=== PATIENT | male | born 1975 | race Caucasian/White ===

== ENCOUNTER 2024-10-20 19:21 | Emergency (ER) | payer OTHER, SELFPAY ==
[2024-10-20 19:23] VITALS: BP 114/73
[2024-10-20 20:49] VITALS: BP 121/79
[2024-10-20] MEDS: NSS 1000 IV ×2 (20:57→22:10)
[2024-10-20] MEDS: TYLENOL 1000 MG PO (20:57)
[2024-10-20 21:00] VITALS: BP 129/78; BMI 24.2
[2024-10-20 21:20] LABS: Hematocrit 41.5 % (39.0-52.0); Hemoglobin 15.1 g/dL (13.0-18.0); Mean Corp Hgb Conc. 36.4 g/dL (33.0-37.0); Mean Corpuscular Volume 84.9 fL (80.0-94.0); Nucleated Red Blood Cells % 0 % (-); Platelet Count 110 10^3/uL (130-400); Red Cell Dist. Width 12.6 % (11.5-14.5)
[2024-10-20 21:36] LABS: ALT (SGPT) 82 U/L (0-50); AST (SGOT) 62 U/L (17-59); Albumin 4.2 g/dl (3.5-5.0); Alkaline Phosphatase 99 U/L (38-126); Blood Urea Nitrogen 12 mg/dl (9-20); Calcium 8.7 mg/dl (8.4-10.2); Carbon Dioxide 24 mmol/L (22-30); Chloride 100 mmol/L (98-107); Estimated Creatinine Clearance 108 ml/min; Glucose 137 mg/dl (70-99); Potassium 4.2 mmol/L (3.5-5.1); Sodium 131 mmol/L (135-145); Total Protein 7.4 g/dl (6.3-8.2); eGFR > 60.00
[2024-10-20 21:51] LABS: COVID-19 Antigen Negative (Negative)
[2024-10-20 22:00] VITALS: BP 122/78
[2024-10-20] MEDS: TORADOL 30 MG IV (22:09)
--- NOTE | 2024-10-20 22:16 | EDRN ---
April HOSPICE PLAN ADMINISTRATOR in to see patient, went over blood work with patient and as well, still low grade fever and headache at this time, will continue to monitor
--- NOTE | 2024-10-20 22:39 | ED.GENMED ---
History of Present Illness
<April Saleh NP - Last Filed: 10/21/24 20:08>
General
Chief Complaint: Fever
Source: patient
Exam Limitations: none
Time Seen by Provider: 10/20/24 21:03
Nursing documentation reviewed up to this point in time: agreed with
History of Present Illness
History of Present Illness:
Patient to ED wtih complaint of fever and headache x 3days. Denies n/v/d. No dizziness or vision changes. Denies any neck pain, skin rash. Taking ibuprofen and tylenol with temporary relief of fever. Brought to ED by spouse for eval.
Past History
<April Saleh NP - Last Filed: 10/21/24 20:08>
Past History
ED Past Medical History: None
Review of Systems
<April Saleh NP - Last Filed: 10/21/24 20:08>
Review of Systems
Allergies reviewed?: Yes
All Other Systems: ROS reviewed and negative except as documented in HPI and ROS
Constitutional: Reports fever and fatigue
EENT: Reports no symptoms
Respiratory: Reports no symptoms
Cardiac: Reports no symptoms
ABD/GI: Reports no symptoms
: Reports no symptoms
Musculoskeletal: Reports no symptoms
Skin: Reports no symptoms
Neurological: Reports headache
Psychiatric: Reports no symptoms
Phy Exam
<April Saleh NP - Last Filed: 10/21/24 20:08>
General Physical Exam
General Presentation: mild distress
General age: appears stated age
General Skin: warm and dry
General Habitus: normal
ENT Exam
ENT Exam: EOMI, neck supple, normocephalic and swallowing well
Eye Exam
Eye Exam: PERRL, EOMI, conjunctiva normal, globe normal and other (No photophobia)
Cardiovascular Exam
Cardiovascular Exam: regular rate/rhythm and no edema
Pulmonary Exam
Pulmonary Exam: lungs clear and no respiratory distress
Neurological Exam
Neurological Exam: alert, oriented x3, CN II-XII intact, no motor deficits, no sensory deficits and speech normal
Musculoskeletal Exam
Musculoskeletal Exam: full ROM and neuro vasc intact
Skin Exam
Skin Exam: normal color, warm/dry and no rash
Psychiatric Exam
Psychiatric Exam: normal mood/affect
Course
<April Saleh NP - Last Filed: 10/21/24 20:08>
Orders/Labs/Results
Orders:
Orders
10/20/24 20:54
Acetaminophen [Tylenol] 1,000 mg .ROUTE .STK-MED ONE
10/20/24 20:55
0.9% Sodium Chloride 1000 ml [Nss] 1,000 ml IV BOLUS
10/20/24 20:56
Acetaminophen [Tylenol] 1,000 mg PO NOW STA
10/20/24 20:59
CBC/With Diff [Complete Blood Count/With Diff] Urgent
CMP [Comprehensive Metabolic Panel] Urgent
10/20/24 21:00
COVID-19 Antigen Urgent
Source: Nasal Swab
Lactic Acid Urgent
Influenza A+B Rapid Molecular Urgent
EMMANUEL Source: Nasal Swab
Specimen Description:
10/20/24 21:59
0.9% Sodium Chloride 1000 ml [Nss] 1,000 ml IV BOLUS
10/20/24 22:00
Ketorolac [Toradol] 30 mg IV NOW STA
10/20/24 22:38
CT Head W/o Iv Contrast Urgent
Comment:
Reason For Exam: fever/headache
10/20/24 23:38
Dexamethasone Sod Phosphate [Decadron] 10 mg IV NOW STA
10/21/24 00:48
Amoxicillin 875 mg/Clav 125 mg [Augmentin 875 mg/125 mg] 1 tablet PO NOW STA
Abnormal Lab Results
10/20/24
20:59
Plt Count 110 L 10^3/uL
(130-400)
Lymphocytes % 20.0 L %
(20.5-51.1)
Sodium 131 L mmol/L
(135-145)
Glucose 137 H mg/dl
(70-99)
AST 62 H U/L
(17-59)
ALT 82 H U/L
(0-50)
10/20/24 20:59
10/20/24 20:59
Vital Signs
Initial and Last Documented VS:
Initial Vital Signs
Temp Pulse Resp BP Pulse Ox
98.4 F 87 15 114/73 97
10/20/24 19:23 10/20/24 19:23 10/20/24 19:23 10/20/24 19:23 10/20/24 19:23
Last Documented Vital Signs
Temp Pulse Resp BP Pulse Ox
99.2 F 87 15 122/78 95
10/20/24 22:11 10/20/24 19:23 10/20/24 19:23 10/21/24 00:00 10/21/24 00:45
Endylt;Liu Kilgore, DO - Last Filed: 10/21/24 00:48>
Orders/Labs/Results
Orders:
Orders
10/20/24 20:54
Acetaminophen [Tylenol] 1,000 mg .ROUTE .STK-MED ONE
10/20/24 20:55
0.9% Sodium Chloride 1000 ml [Nss] 1,000 ml IV BOLUS
10/20/24 20:56
Acetaminophen [Tylenol] 1,000 mg PO NOW STA
10/20/24 20:59
CBC/With Diff [Complete Blood Count/With Diff] Urgent
CMP [Comprehensive Metabolic Panel] Urgent
10/20/24 21:00
COVID-19 Antigen Urgent
Source: Nasal Swab
Lactic Acid Urgent
Influenza A+B Rapid Molecular Urgent
EMMANUEL Source: Nasal Swab
Specimen Description:
10/20/24 21:59
0.9% Sodium Chloride 1000 ml [Nss] 1,000 ml IV BOLUS
10/20/24 22:00
Ketorolac [Toradol] 30 mg IV NOW STA
10/20/24 22:38
CT Head W/o Iv Contrast Urgent
Comment:
Reason For Exam: fever/headache
10/20/24 23:38
Dexamethasone Sod Phosphate [Decadron] 10 mg IV NOW STA
10/21/24 00:48
Amoxicillin 875 mg/Clav 125 mg [Augmentin 875 mg/125 mg] 1 tablet PO NOW STA
Abnormal Lab Results
10/20/24
20:59
Plt Count 110 L 10^3/uL
(130-400)
Lymphocytes % 20.0 L %
(20.5-51.1)
Sodium 131 L mmol/L
(135-145)
Glucose 137 H mg/dl
(70-99)
AST 62 H U/L
(17-59)
ALT 82 H U/L
(0-50)
10/20/24 20:59
10/20/24 20:59
Vital Signs
Initial and Last Documented VS:
Initial Vital Signs
Temp Pulse Resp BP Pulse Ox
98.4 F 87 15 114/73 97
10/20/24 19:23 10/20/24 19:23 10/20/24 19:23 10/20/24 19:23 10/20/24 19:23
Last Documented Vital Signs
Temp Pulse Resp BP Pulse Ox
99.2 F 87 15 122/78 95
10/20/24 22:11 10/20/24 19:23 10/20/24 19:23 10/21/24 00:00 10/21/24 00:45
<April Saleh NP - Last Filed: 10/21/24 20:08>
*Pulse Oximetry
SaO2: 96
Oxygen Mode of Delivery: Room air
Patient hypoxic: no
*Critical Care Note
Total Time (30-74mins, 75-104mins- exclusive of procedures): Not Applicable
<Liu Kilgore DO - Last Filed: 10/21/24 00:48>
Update Note
Update Note:
NAME: ALONSO BERMUDEZ
DATE OF EXAM: 10/20/2024
Patient No: [id number]
Physician: SIDNEY^DARVIN
Date of : 1975
Past Medical History (entered by Technologist):
Reason For Exam (entered by Technologist): headache with fever
Other Notes (entered by Technologist):
Additional Information (per [facility] Radiologist):
CT head
IMPRESSION:
No acute intracranial hemorrhage, mass or mass-effect.
Minor scattered ethmoid and left maxillary sinus mucosal thickening. Otherwise visualized paranasal sinuses, middle ears, and mastoid air cells are clear.
The results were faxed/finalized only at 12:09 AM ET. If you would like to discuss this case directly, please call [phone] (extension [phone]). If you can't reach me at this number, do not leave a voicemail. Please call [phone] ext [phone] and
ask for the next available Radiologist.
Amilcar Viera MD
This report has been electronically signed and verified by the Radiologist whose name is printed above.
Patient feeling better. Did discuss lumbar puncture with patient and significant other. Discussed the pros and cons. At this point patient absolutely refuses LP. Patient has no further questions. Wishes to be discharged. Will get started on an
antibiotic for the mucosal thickening. Patient does have sinus pressure. I feel that this may be sinusitis. Patient being discharged in improved condition.
ED Attending Note
<April Saleh TELESALES AGENT - Last Filed: 10/21/24 20:08>
-
Portions of this chart may have been created with voice recognition software.� Occasional wrong word or��sound alike� substitutions may have occurred due to the inherent limitations of voice recognition software.
<Liu Kilgore DO - Last Filed: 10/21/24 00:48>
ED Attending Note
Patient seen and examined by attending physician: Yes
ED Attending Note:
49-year-old male with low-grade fever headache sinus congestion. Patient seen in conjunction with the nurse practitioner. I have reviewed and agree with the her history and treatment plan. On my independent exam patient has full range of motion
of the neck without evidence of nuchal rigidity or any other meningeal signs. Pupils equal round reactive to light and accommodation. Extraocular motion intact. Patient is mentating appropriately.
CT scan of the head is negative. Did discuss lumbar puncture at length with patient and . After some time thinking about it, patient absolutely refuses LP. He does understand that there is a slight possibility of a missed diagnosis without
the LP. He will monitor his symptoms and return as needed. He will get an antibiotic for the mucosal thickening in the sinus pressure.
Discharge Plan
Departure
Patient Disposition: Home (Routine Discharge)
Date of Disposition: 10/21/24
Time of Disposition: 00:46
Patient with high blood pressure during this ER visit?: No
Condition: Good
Covid-19: Not Applicable
Discharge Problem:
Headache, Sinusitis
Instructions: Fever, Adult (DC), Headache in adults - ED discharge instructions, BLOOD PRESSURE
Prescriptions:
New
amoxicillin-pot clavulanate 875-125 mg tablet
1 tab PO BID Qty: 20 0RF
Referrals:
Oscar Ludwig MD [Family Provider, Family Practice]
Activity Restrictions/Additional Instructions:
Follow up with your family doctor. COntinue tylenol and or ibuprofen for your fever and headache. Return to the emergency department immediately for any changes in/worsening of your symptoms.
Interventions
Interventions:
*Risk Screen - Suicide Last Done: 10/20/24 19:23
*General Assessment Last Done: 10/20/24 19:23
*Neglect/Abuse Screening Last Done: 10/20/24 19:23
*ED- Fall Risk Assessment Last Done: 10/20/24 21:00
*ED COVID-19 Vaccine History Last Done: 10/20/24 19:23
*Nursing Disposition Last Done: 10/21/24 01:07
ED- Neurological Assessment Last Done: 10/20/24 21:57
ED-Skin Assessment Last Done: 10/20/24 21:57
Discharge Date and Time
Discharge Date/Time: 10/21/24 01:08
Print Language: WOLOF
[2024-10-20 23:00] VITALS: BP 123/83
[2024-10-20] MEDS: DECADRON 10 MG IV (23:47)
[2024-10-21] VITALS: BP 122/78
[2024-10-21] MEDS: AUGMENTIN 875 MG/125 MG 1 TABLET PO (00:56)
== END 2024-10-21 01:08 | disposition home or self-care (01) ==
LOC: EMR 19:21
PROVIDERS: Student in an Organized Health Care Education/Training Program; EMERGENCY PHYSICIAN Student in an Organized Health Care Education/Training Program; FAMILY PHYSICIAN Family Medicine
DX: J32.9 Chronic sinusitis, unspecified (principal); R51.9 Headache, unspecified; Z11.52 Encounter for screening for COVID-19
CPT/HCPCS: 99285; 96374; 96375; 96361 ×2; 70450; 80053; 83605; 85025; 87502; 87811